=== PATIENT | male | born 1975 | race Two or more races ===

== ENCOUNTER 2016-10-06 02:34 | Emergency (ER) | payer OTHER, SELFPAY | END 2016-10-06 03:20 | disposition home or self-care (01) | LOC: CED 02:34 | DX: H57.12 Ocular pain, left eye (principal) | CPT/HCPCS: 99282 ==

== ENCOUNTER 2016-10-06 18:41 | Emergency (ER) | payer OTHER, SELFPAY | END 2016-10-06 21:00 | disposition home or self-care (01) | LOC: CFTX 18:41 | DX: H57.8 Other specified disorders of eye and adnexa (principal) | CPT/HCPCS: 99283 ==